=== PATIENT | male | born 1975 | race Caucasian/White ===

== ENCOUNTER 2023-04-15 11:00 | Inpatient (IN) | payer MEDICAID ==
[~2023-04-15] VITALS: Ht 175.3 cm; Wt 81.6 kg
[2023-04-15 11:03] VITALS: BP 138/88; PULSE 98; RESP 20; TEMP 98.1; O2SAT 97
[2023-04-15] MEDS ORDERED: NACL 0.9% 1,000 ML IV SCH (11:25)
[2023-04-15] MEDS ORDERED: NACL 0.9% 1,000 ML IV ONE ×2 (11:25→13:30)
[2023-04-15] MEDS ORDERED: ONDANSETRON 4 MG/2 ML VIAL IVP ONE (11:25)
[2023-04-15] MEDS ORDERED: MECLIZINE 25 MG TAB PO ONE (11:45)
[2023-04-15] MEDS ORDERED: ACETAMINOPHEN EXTRA STRENGTH 500 MG TAB PO ONE (11:45)
[2023-04-15 12:38] LABS: BASOPHILS % (AUTO) 0.1 % (0.0-2.0); HEMOGLOBIN 14.3 g/dL (12.0-18.0); LYMPHOCYTES # (AUTO) 0.8 K/uL (2.0-11.5); LYMPHOCYTES % (AUTO) 6.3 % (20.5-51.1); MEAN CORPUSCULAR HEMOGLOBIN 29 pg (27-31); MEAN CORPUSCULAR HGB CONC 33 g/dL (33-37); MEAN CORPUSCULAR VOLUME 87.8 fL (80-94); MONOCYTES # (AUTO) 1.2 K/uL (0.8-1.0); MONOCYTES % (AUTO) 9.8 % (1.7-9.3); NEUTROPHILS # (AUTO) 10.1 K/uL (1.8-7.7); NEUTROPHILS % (AUTO) 83.8 % (42.2-75.2); PLATELET COUNT (AUTO) 138 K/uL (140-450); RED BLOOD CELL COUNT(AUTO) 4.89 MIL/uL (4.20-6.10); RED CELL DISTRIBUTION WIDTH 14.4 % (11.6-13.7); WHITE BLOOD COUNT (AUTO) 12.1 K/uL (4.8-10.8)
[2023-04-15 12:49] LABS: INR 0.96 (0.8-1.2); PARTIAL THROMBOPLASTIN TIME 21.5 secs (22-35.6); PROTHROMBIN TIME 10.1 secs (10.8-13.4)
[2023-04-15 12:54] LABS: ALANINE AMINOTRANSFERASE 51 U/L (12-78); ALBUMIN 3.5 g/dL (3.4-5.0); ALKALINE PHOSPHATASE 148 U/L (50-136); ANION GAP 22.3 (8-16); ASPARTATE AMINOTRANSFERASE 36 U/L (15-37); CALCIUM 8.8 mg/dL (8.5-10.1); CARBON DIOXIDE 19.4 mmol/L (21-32); CHLORIDE 91 mmol/L (98-107); CREATINE KINASE, TOTAL 92 U/L (39-308); CREATININE 1.5 mg/dL (0.6-1.3); GFR ARICAN-AMERICAN 64 mL/min (>90); GFR NON ARICAN-AMERICAN 53 mL/min (>90); LACTIC ACID 3.3 mmol/L (0.4-2.0); POTASSIUM 4.7 mmol/L (3.5-5.1); SODIUM SERUM 128 mmol/L (136-145); TOTAL BILIRUBIN 1.3 mg/dL (0.0-1.0); TOTAL PROTEIN, SERUM 7.3 g/dL (6.4-8.2); UREA NITROGEN, BLOOD 28 mg/dL (7-18)
[2023-04-15 12:55] LABS: GLUCOSE 508 mg/dL (74-106)
[2023-04-15 13:00] VITALS: O2SAT 97
[2023-04-15 13:30] LABS: ACETONE, SERUM Negative (NEGATIVE)
[2023-04-15] MEDS ORDERED: INSULIN REGULAR, HUMAN 100 UNIT/ML VIAL IV ONE (13:30)
[2023-04-15] MEDS ORDERED: INSULIN REGULAR, HUMAN 100 UNIT in NACL 0.9% 100 ML IV ONE ×2 (13:30)
[2023-04-15] MEDS: BLOOD GLUCOSE MONITORING 1 DEV DEV FS SCH ×6 (15:51→23:00)
[2023-04-15 16:17] LABS: ANION GAP 19.3 (8-16); CALCIUM 7.7 mg/dL (8.5-10.1); CARBON DIOXIDE 19.5 mmol/L (21-32); CREATININE 1.5 mg/dL (0.6-1.3); POTASSIUM 3.8 mmol/L (3.5-5.1)
[2023-04-15 16:58] LABS: APPEARANCE,URINE CLEAR (CLEAR); BILIRUBIN,URINE NEGATIVE (NEGATIVE); BLOOD, URINE 2+ (NEGATIVE); COLOR,URINE YELLOW (YELLOW); LEUKOCYTE ESTERASE ,URINE NEGATIVE (NEGATIVE); NITRITE, URINE NEGATIVE (NEGATIVE); PROTEIN,URINE 3+ (NEGATIVE); UGLUCOSE 3+ (NEGATIVE); UROBILINOGEN,URINE 0.2 EU/dL (0.2 - 1)
[2023-04-15] MEDS ORDERED: ONDANSETRON 4 MG/2 ML VIAL ONE (17:21)
[2023-04-15] MEDS ORDERED: ONDANSETRON 4 MG/2 ML VIAL IVP PRN (17:40)
[2023-04-15 17:44] LABS: BACTERIA,URINE FEW /HPF (None Seen); MUCUS,URINE None Seen /LPF (None Seen); RBC,URINE 0-5 /HPF (0-5); SQUAMOUS EPITHELIAL CELL,UR 0-3 (FEW) /LPF (0-3 (FEW)); TRICHOMONAS,URINE None Seen /HPF (None Seen); WBC,URINE 0-5 /HPF (0-5); WHITE BLOOD CELL CASTS,URINE None Seen /LPF (None Seen); YEAST,URINE None Seen /HPF (None Seen)
[2023-04-15 18:55] VITALS: PULSE 109
[2023-04-15] MEDS ORDERED: INSULIN REGULAR, HUMAN 100 UNIT in NACL 0.9% 100 ML IV SCH ×2 (19:50)
[2023-04-15 20:00] VITALS: BP 141/78; PULSE 111; PULSE 112; RESP 23; TEMP 100.3; O2SAT 97
[2023-04-15 20:47] LABS: ANION GAP 16.8 (8-16); CALCIUM 8.1 mg/dL (8.5-10.1); CREATININE 1.4 mg/dL (0.6-1.3); POTASSIUM 3.8 mmol/L (3.5-5.1)
[2023-04-15] MEDS: NACL 0.9% 1,000 ML IV SCH (20:48)
[2023-04-15] MEDS: ACETAMINOPHEN 325 MG TAB PO PRN (20:49)
[2023-04-15 20:50] LABS: MAGNESIUM 2.2 mg/dL (1.8-2.4); PHOSPHORUS 1.9 mg/dL (2.5-4.9)
[2023-04-15 21:00] VITALS: PULSE 112; RESP 23; O2SAT 98
[2023-04-15] MEDS: DEXT 5% / NACL 0.45% 1,000 ML IV SCH (21:29)
[2023-04-15 22:00] VITALS: BP 123/76; PULSE 90; RESP 26; TEMP 99.9; O2SAT 98
[2023-04-16] VITALS (13 sets, daily range): BP systolic 118–168; BP diastolic 75–93; PULSE 87–111; RESP 12–26; TEMP 97.3–102; O2SAT 96–99
[2023-04-16] MEDS: BLOOD GLUCOSE MONITORING 1 DEV DEV FS SCH ×14 (00:36→21:19)
[2023-04-16] MEDS: NACL 0.9% 1,000 ML IV SCH ×4 (00:50→19:50)
[2023-04-16] MEDS: DEXT 5% / NACL 0.45% 1,000 ML IV SCH ×3 (00:50→07:35)
[2023-04-16 01:08] LABS: ANION GAP 16.1 (8-16); CALCIUM 7.7 mg/dL (8.5-10.1); CARBON DIOXIDE 22.8 mmol/L (21-32); CREATININE 1.1 mg/dL (0.6-1.3); POTASSIUM 3.9 mmol/L (3.5-5.1)
[2023-04-16 01:11] LABS: MAGNESIUM 2.2 mg/dL (1.8-2.4); PHOSPHORUS 2.9 mg/dL (2.5-4.9)
[2023-04-16] MEDS: ACETAMINOPHEN 325 MG TAB PO PRN ×2 (04:02→17:33)
[2023-04-16 06:22] LABS: MAGNESIUM 2.1 mg/dL (1.8-2.4); PHOSPHORUS 1.9 mg/dL (2.5-4.9)
[2023-04-16 06:28] LABS: ANION GAP 13.1 (8-16); CALCIUM 7.9 mg/dL (8.5-10.1); CARBON DIOXIDE 25.4 mmol/L (21-32); CREATININE 1.1 mg/dL (0.6-1.3); POTASSIUM 3.5 mmol/L (3.5-5.1)
[2023-04-16 08:34] LABS: ANION GAP 11.4 (8-16); CALCIUM 7.5 mg/dL (8.5-10.1); POTASSIUM 3.4 mmol/L (3.5-5.1)
[2023-04-16 08:44] LABS: MAGNESIUM 2.2 mg/dL (1.8-2.4); PHOSPHORUS 2.5 mg/dL (2.5-4.9)
[2023-04-16] MEDS ORDERED: INSULIN LANTUS 100 UNITS/ML 10 ML VIAL SUBQ SCH ×2 (10:01→21:00)
[2023-04-16] MEDS ORDERED: POTASSIUM CHLORIDE 10 MEQ TABER PO SCH ×2 (10:02→10:49)
[2023-04-16] MEDS ORDERED: INSULIN LISPRO 100 UNITS/ML VIAL SUBQ ONE (10:35)
[2023-04-16] MEDS: INSULIN LISPRO SLIDING SCALE 100 UNITS/ML VIAL SUBQ PRN ×3 (12:12→21:22)
[2023-04-16 12:36] LABS: CALCIUM 7.6 mg/dL (8.5-10.1); CARBON DIOXIDE 23.6 mmol/L (21-32); CREATININE 0.9 mg/dL (0.6-1.3); POTASSIUM 3.6 mmol/L (3.5-5.1)
[2023-04-16 12:40] LABS: MAGNESIUM 2.1 mg/dL (1.8-2.4); PHOSPHORUS 2.2 mg/dL (2.5-4.9)
[2023-04-16 16:24] LABS: ANION GAP 10.2 (8-16); CALCIUM 7.5 mg/dL (8.5-10.1); CARBON DIOXIDE 25.9 mmol/L (21-32); CREATININE 0.8 mg/dL (0.6-1.3); POTASSIUM 4.1 mmol/L (3.5-5.1)
[2023-04-16 16:43] LABS: PHOSPHORUS 1.8 mg/dL (2.5-4.9)
[2023-04-17] VITALS (8 sets, daily range): BP systolic 148–153; BP diastolic 83–92; PULSE 89–101; RESP 18–20; TEMP 97.3–98.9; O2SAT 94–98
[2023-04-17] MEDS: NACL 0.9% 1,000 ML IV SCH (05:50)
[2023-04-17] MEDS: BLOOD GLUCOSE MONITORING 1 DEV DEV FS SCH ×4 (06:23→20:59)
[2023-04-17 06:31] LABS: BASOPHILS % (AUTO) 0.2 % (0.0-2.0); HEMATOCRIT 40.6 % (36-52); HEMOGLOBIN 13.6 g/dL (12.0-18.0); LYMPHOCYTES # (AUTO) 1.1 K/uL (2.0-11.5); LYMPHOCYTES % (AUTO) 16.2 % (20.5-51.1); MEAN CORPUSCULAR HEMOGLOBIN 29 pg (27-31); MEAN CORPUSCULAR HGB CONC 34 g/dL (33-37); MEAN CORPUSCULAR VOLUME 87.2 fL (80-94); MONOCYTES # (AUTO) 1.1 K/uL (0.8-1.0); NEUTROPHILS # (AUTO) 4.4 K/uL (1.8-7.7); NEUTROPHILS % (AUTO) 66.6 % (42.2-75.2); PLATELET COUNT (AUTO) 114 K/uL (140-450); RED BLOOD CELL COUNT(AUTO) 4.66 MIL/uL (4.20-6.10); RED CELL DISTRIBUTION WIDTH 13.8 % (11.6-13.7); WHITE BLOOD COUNT (AUTO) 6.7 K/uL (4.8-10.8)
[2023-04-17 07:20] LABS: ANION GAP 13.7 (8-16); CALCIUM 7.6 mg/dL (8.5-10.1); CREATININE 0.9 mg/dL (0.6-1.3); POTASSIUM 3.7 mmol/L (3.5-5.1)
[2023-04-17] MEDS ORDERED: lisinopriL 10 MG TAB PO SCH (09:00)
[2023-04-17] MEDS: ATORVASTATIN 20 MG TAB PO SCH (11:12)
[2023-04-17] MEDS: INSULIN LISPRO SLIDING SCALE 100 UNITS/ML VIAL SUBQ PRN ×2 (12:29→20:40)
[2023-04-17] MEDS: INSULIN LANTUS 100 UNITS/ML 10 ML VIAL SUBQ SCH (20:43)
[2023-04-18] VITALS: BP 153/83; PULSE 96; RESP 18; TEMP 98.1; O2SAT 100
[2023-04-18 04:00] VITALS: BP 156/94; PULSE 88; PULSE 98; RESP 18; TEMP 97.7; O2SAT 97
[2023-04-18 06:32] LABS: ANION GAP 12.1 (8-16); CALCIUM 7.9 mg/dL (8.5-10.1); CARBON DIOXIDE 28.6 mmol/L (21-32); CREATININE 0.8 mg/dL (0.6-1.3); POTASSIUM 3.7 mmol/L (3.5-5.1)
[2023-04-18 06:38] LABS: BASOPHILS % (AUTO) 0.3 % (0.0-2.0); EOSINOPHILS % (AUTO) 0.4 % (0.0-4.0); HEMATOCRIT 38.7 % (36-52); HEMOGLOBIN 13.1 g/dL (12.0-18.0); LYMPHOCYTES % (AUTO) 22.4 % (20.5-51.1); MEAN CORPUSCULAR HEMOGLOBIN 29 pg (27-31); MEAN CORPUSCULAR HGB CONC 34 g/dL (33-37); MEAN CORPUSCULAR VOLUME 86.7 fL (80-94); MONOCYTES # (AUTO) 0.9 K/uL (0.8-1.0); MONOCYTES % (AUTO) 19.9 % (1.7-9.3); NEUTROPHILS # (AUTO) 2.5 K/uL (1.8-7.7); PLATELET COUNT (AUTO) 119 K/uL (140-450); RED BLOOD CELL COUNT(AUTO) 4.47 MIL/uL (4.20-6.10); RED CELL DISTRIBUTION WIDTH 13.9 % (11.6-13.7); WHITE BLOOD COUNT (AUTO) 4.3 K/uL (4.8-10.8)
[2023-04-18] MEDS: INSULIN LISPRO SLIDING SCALE 100 UNITS/ML VIAL SUBQ PRN ×4 (06:55→20:17)
[2023-04-18] MEDS: BLOOD GLUCOSE MONITORING 1 DEV DEV FS SCH ×4 (07:01→20:21)
[2023-04-18 08:00] VITALS: BP 127/85; PULSE 88; PULSE 96; PULSE 97; RESP 18; RESP 20; TEMP 98.2; TEMP 98.7; O2SAT 97
[2023-04-18] MEDS: lisinopriL 20 MG TAB PO SCH (08:36)
[2023-04-18] MEDS: ATORVASTATIN 20 MG TAB PO SCH (08:36)
[2023-04-18 16:00] VITALS: BP 149/95; PULSE 97; RESP 18; TEMP 98.2; O2SAT 97
[2023-04-18] MEDS ORDERED: ATOR20TA PO ×2 (18:11→18:38)
[2023-04-18] MEDS ORDERED: INSU1KIT MC (18:19)
[2023-04-18] MEDS ORDERED: PEN-124 SUBQ (18:19)
[2023-04-18] MEDS ORDERED: INSU-1165 SQ (18:23)
[2023-04-18] MEDS ORDERED: INSU100S22 SUBQ ×2 (18:24→18:41)
[2023-04-18] MEDS ORDERED: LISI-487 PO ×2 (18:25→18:40)
[2023-04-18] MEDS ORDERED: ACCU (18:33)
[2023-04-18] MEDS ORDERED: GLUC-404 MC (18:33)
[2023-04-18] MEDS ORDERED: INSU100I34 SQ (18:42)
[2023-04-18 18:55] VITALS: BP 149/95; PULSE 97; RESP 20; TEMP 98.7
[2023-04-18 20:00] VITALS: BP 149/93; PULSE 92; RESP 18; TEMP 98.3; O2SAT 97; O2SAT 99
[2023-04-18] MEDS: INSULIN LANTUS 100 UNITS/ML 10 ML VIAL SUBQ SCH (20:20)
[2023-04-19 04:00] VITALS: BP 147/93; PULSE 93; RESP 17; TEMP 97.2; O2SAT 95
[2023-04-19 06:23] LABS: ANION GAP 10.8 (8-16); CARBON DIOXIDE 29.6 mmol/L (21-32); CREATININE 0.8 mg/dL (0.6-1.3); POTASSIUM 3.4 mmol/L (3.5-5.1)
[2023-04-19 06:26] LABS: BASOPHILS % (AUTO) 0.2 % (0.0-2.0); EOSINOPHILS % (AUTO) 0.8 % (0.0-4.0); HEMATOCRIT 39.8 % (36-52); HEMOGLOBIN 13.6 g/dL (12.0-18.0); LYMPHOCYTES # (AUTO) 1.1 K/uL (2.0-11.5); LYMPHOCYTES % (AUTO) 24.5 % (20.5-51.1); MEAN CORPUSCULAR HEMOGLOBIN 30 pg (27-31); MEAN CORPUSCULAR HGB CONC 34 g/dL (33-37); MEAN CORPUSCULAR VOLUME 86.8 fL (80-94); MONOCYTES # (AUTO) 0.9 K/uL (0.8-1.0); MONOCYTES % (AUTO) 18.9 % (1.7-9.3); NEUTROPHILS # (AUTO) 2.5 K/uL (1.8-7.7); NEUTROPHILS % (AUTO) 55.6 % (42.2-75.2); PLATELET COUNT (AUTO) 151 K/uL (140-450); RED BLOOD CELL COUNT(AUTO) 4.59 MIL/uL (4.20-6.10); RED CELL DISTRIBUTION WIDTH 14.1 % (11.6-13.7); WHITE BLOOD COUNT (AUTO) 4.5 K/uL (4.8-10.8)
[2023-04-19] MEDS: INSULIN LISPRO SLIDING SCALE 100 UNITS/ML VIAL SUBQ PRN (06:46)
[2023-04-19] MEDS: BLOOD GLUCOSE MONITORING 1 DEV DEV FS SCH ×2 (06:47→11:51)
[2023-04-19 08:00] VITALS: PULSE 96; RESP 18; TEMP 96.8; O2SAT 98
[2023-04-19] MEDS ORDERED: POTASSIUM CHLORIDE 10 MEQ TABER PO SCH (08:20)
[2023-04-19] MEDS: lisinopriL 20 MG TAB PO SCH (10:27)
[2023-04-19] MEDS: ATORVASTATIN 20 MG TAB PO SCH (10:27)
== END 2023-04-19 15:30 | disposition home or self-care (01) | DRG 469 ==
LOC: MED 11:00 → MIC 15:35 → MTU 04-16 18:17
PROVIDERS: ADMIT Family Medicine; ATTEND Family Medicine
DX: N17.9 Acute kidney failure, unspecified (principal); G93.41 Metabolic encephalopathy; E11.10 Type 2 diabetes mellitus with ketoacidosis without coma; D69.6 Thrombocytopenia, unspecified; R65.10 Systemic inflammatory response syndrome (SIRS) of non-infectious origin without acute organ dysfunction; E87.1 Hypo-osmolality and hyponatremia; E86.9 Volume depletion, unspecified; I10 Essential (primary) hypertension; Z91.148 Patient's other noncompliance with medication regimen for other reason
CPT/HCPCS: 36415; 70450; 71045; 80048; 80053; 81001; 82009; 82140; 82550; 82803; 82948; 83036; 83605; 83690; 83735; 84100; 84484; 85025; 85610; 85730; 87040; 87081; 87086; 96361; 96374; 96375; 96376; 97112; 97116; 97163-GP; 97530; 99291; J1644; J1815; J2405; J8597